=== PATIENT | female | born 1950 | race Caucasian/White ===

== ENCOUNTER 2021-09-09 05:28 | Day surgery (SDC) | payer MEDICARE, OTHER ==
[2021-08-30 16:01] LABS: BASOPHILS # (AUTO) 0.1 X10'3 (0-0.2); BASOPHILS % (AUTO) 1.2 % (0-1); EOSINOPHILS # (AUTO) 0.2 X10'3 (0-0.9); EOSINOPHILS % (AUTO) 2.7 % (0-6); LYMPHOCYTES # (AUTO) 3.2 X10'3 (1.1-4.8); LYMPHOCYTES % (AUTO) 38.4 % (21-51); MEAN CORPUSCULAR HEMOGLOBIN 32.5 PG (27.0-31.0); MEAN CORPUSCULAR HGB CONC 33.9 g/dL (33.0-36.5); MEAN CORPUSCULAR VOLUME 95.8 FL (78-98); MEAN PLATELET VOLUME 8.6 FL (7.4-10.4); MONOCYTES # (AUTO) 0.7 X10'3 (0-0.9); MONOCYTES % (AUTO) 8.2 % (2-12); NEUTROPHILS # (AUTO) 4.2 X10'3 (1.8-7.7); NEUTROPHILS % (AUTO) 49.5 % (42-75); PRE OP HEMATOCRIT 39.5 % (35.0-45.0); PRE OP HEMOGLOBIN 13.4 g/dL (12.0-16.0); PRE OP PLATELET COUNT 300 X10'3 (140-440); RED BLOOD COUNT 4.12 X10'6 (4.20-5.60); RED CELL DISTRIBUTION WIDTH 13.5 % (11.5-14.5)
[2021-08-30 16:05] LABS: ALBUMIN 3.6 G/DL (3.4-5.0); ALBUMIN/GLOBULIN RATIO 0.8 (1.1-1.5); ALKALINE PHOSPHATASE 78 IU/L (46-116); BLOOD UREA NITROGEN 19 MG/DL (7-18); BUN/CREATININE RATIO 17.3 (6.6-38.0); CALCIUM 8.9 MG/DL (8.5-10.1); CHLORIDE 103 MMOL/L (99-107); PRE OP ALT 73 U/L (30-65); PRE OP ANION GAP 13 (8-16); PRE OP AST 54 U/L (10-37); PRE OP BILIRUB, TOTAL 0.3 MG/DL (0.0-1.0); PRE OP GLUCOSE 116 MG/DL (70-104); PRE OP SODIUM 141 MMOL/L (135-145); TOTAL CARBON DIOXIDE 25.3 MMOL/L (24-32); eGFR 49 ML/MIN
[2021-08-30 16:13] LABS: PRE OP POTASSIUM 3.2 MMOL/L (3.4-5.1)
[2021-08-30 16:26] LABS: CLARITY,URINE CLEAR (Clear); COLOR,URINE YELLOW (Yellow); GLUCOSE, URINE NEGATIVE (Neg); KETONES,URINE NEGATIVE (Neg); OCCULT BLOOD,URINE NEGATIVE (Neg); PROTEIN,URINE NEGATIVE (Neg); UA COLLECTION TYPE CLN CATCH MIDSTREAM
[2021-08-30 16:27] LABS: LEUKOCYTE ESTERASE ,URINE NEGATIVE (Neg); NITRITES, URINE NEGATIVE (Neg); UROBILINOGEN,URINE 0.2 E.U/dL (0.2-1.0)
[2021-09-09] VITALS (10 sets, daily range): BP systolic 138–157; BP diastolic 64–84
[~2021-09-09] VITALS: Ht 167.6 cm; Wt 85.4 kg
[~2021-09-09 05:28] MED LIST: ASPI-1053 PO; CALC-331 PO; MULT-1085 PO; OMEP40CA21 PO; SIMV-42 PO; TRIA1CAP6 PO; VALS320T2 PO; [UNRECOGNIZED DRUG - OTHER] PO; ringers solution, lacted 1,000 ML IV SCH
[2021-09-09] MEDS ORDERED: famotidine 20mg tablet PO ONE (05:30)
[2021-09-09] MEDS ORDERED: cefazolin/dext.iso 2gm/50ml 50 ML IV ONE (05:30)
[2021-09-09 07:06] LABS: ISTAT CREATININE 0.9 mg/dL (0.6-1.1); ISTAT HGB 13.3 g/dl (12.0-16.0); ISTAT IONIZED CALCIUM 1.19 mmol/L (1.03-1.32); ISTAT K 3.8 mmol/L (3.5-5.1); POC BUN/CREATININE RATIO 24.4 (6.6-38.0)
[2021-09-09] MEDS ORDERED: sevoflurane 250ml liquid IH ONE (07:14)
[2021-09-09] MEDS ORDERED: dexamethasone sod phosphate 10mg/ml inj ONE (07:14)
[2021-09-09] MEDS ORDERED: fentaNYL/PF 50MCG/1 ML 2ML syringe ONE (07:14)
[2021-09-09] MEDS ORDERED: ondansetron/PF 4mg/2ml inj ONE (07:14)
[2021-09-09] MEDS ORDERED: ROPIVAcaine 0.5% (5mg/ml) 30ml vial ONE ×2 (07:19→07:27)
[2021-09-09] MEDS ORDERED: LIDOcaine 2% (20mg/ml) 5ml vial ONE (07:27)
[2021-09-09] MEDS ORDERED: propofol inj 20 ML IV ONE (07:27)
[2021-09-09] MEDS ORDERED: morphine 4 MG/ML inj SYRINge IV PRN (07:45)
[2021-09-09] MEDS ORDERED: labetalol 20mg/4ml (5mg/ml) syringe IV PRN (07:45)
[2021-09-09] MEDS ORDERED: ringers solution, lacted 1,000 ML IV SCH (07:45)
[2021-09-09] MEDS ORDERED: hydrALAZINE 20mg/ml inj. IV PRN (07:45)
[2021-09-09] MEDS ORDERED: ondansetron/PF 4mg/2ml inj IV PRN (07:45)
[2021-09-09] MEDS ORDERED: fentaNYL/PF 50MCG/1 ML 2ML syringe IV PRN ×2 (07:45)
[2021-09-09] MEDS ORDERED: morphine 2 MG/ML inj. syringe IV PRN (07:45)
[2021-09-09] MEDS ORDERED: ePHEDrine 50MG/ML INJ. ONE (07:47)
--- NOTE | 2021-09-09 08:16 | NUR ---
Received from OR via [facility], accompanied by Anesthesiologist ALEX and report given by Anesthesiolgist. 10L MASK, 95%, 20G PIV RUE, LEFT FOOT KACEY BANDAGE CDI TOES EXPOSED BLACHABLE PWD, DENIES PAIN, FOB ELEVATED. Addendum: 09/09/21 at 0838 by Madeline Delgado RN Amended: Links added.
[2021-09-09] MEDS ORDERED: bacitracin 15gm ointment TP ONE (08:20)
--- NOTE | 2021-09-09 09:26 | NUR ---
ALL DISCHARGE CRITERIA HAS BEEN MET. VSS, PAIN AT A TOLERABLE LEVEL, ABLE TO SAFELY AMBULATE AND TRANSFER SELF. IV TAKEN OUT WITHOUT ANY COMPLICATIONS. ALL DISCHARGE INSTRUCTIONS COVERED WITH PATIENT AND ALL QUESTIONS ANSWERED. PATIENT TAKEN OUT VIA WHEELCHAIR TO PERSONAL VEHICLE WHERE FAMILY/FRIEND DROVE PATIENT HOME. Addendum: 09/09/21 at 1043 by Madeline Delgado RN Amended: Links added.
== END 2021-09-09 09:26 | disposition home or self-care (01) ==
LOC: PAS 05:28
PROVIDERS: ATTEND Podiatrist Foot & Ankle Surgery
DX: M20.22 Hallux rigidus, left foot (principal); M19.072 Primary osteoarthritis, left ankle and foot; I10 Essential (primary) hypertension; G89.18 Other acute postprocedural pain; E03.9 Hypothyroidism, unspecified; K21.9 Gastro-esophageal reflux disease without esophagitis; E66.9 Obesity, unspecified; Z68.29 Body mass index [BMI] 29.0-29.9, adult; Z88.2 Allergy status to sulfonamides; Z20.822 Contact with and (suspected) exposure to COVID-19; Z79.899 Other long term (current) drug therapy; Z98.890 Other specified postprocedural states; Z98.41 Cataract extraction status, right eye; Z98.42 Cataract extraction status, left eye; Z81.1 Family history of alcohol abuse and dependence; Z82.49 Family history of ischemic heart disease and other diseases of the circulatory system
CPT/HCPCS: 28750; 36415; 64447; 64450; 73620; 76000; 80047; 80053; 81003; 85025; 93005; A6223; C1713; J2001; J2704; J3010; U0003; U0005; Z7506; Z7508; Z7512; A4215; A4618; A6449; A7000; J1100; J2405; J2795; J7120